=== PATIENT | male | born 1930 | race Asian ===

== ENCOUNTER 2018-01-04 12:47 | Emergency (ER) | payer OTHER, BC ==
[~2018-01-04] VITALS: Ht 157.5 cm; Wt 52.2 kg
[~2018-01-04 12:47] MED LIST: ADV100/50 IH; AMB5 PO; ANT25 PO; ASPIR 8181 MG PO; ASPIR-LOW81 M1 PO; BENAZEPRIL HCL PO; COL100 PO; CRESTOR PO; DIT5 PO; DOCUSATE SODIU100 M1 PO; DORZOLAMIDE HYD10 ML OP; EFFIENT10 M1 PO; FER300 PO; FLO4 PO; GLU500 PO; HYD25 PO; LOT10 PO; MEGESTROL; MIRALAX17 GM/Dose PO; NIT0.4 SL; NOR5 PO; PAX20 PO; PLA75 PO; VITC PO; XARELTO10 M1 PO; ZOF4 PO
[2018-01-04 12:50] VITALS: Ht 157.5 cm; Wt 52.2 kg
[2018-01-04 16:15] VITALS: BP 191/76
== END 2018-01-04 16:15 | disposition home or self-care (01) ==
LOC: ED 12:47
DX: S09.90XA Unspecified injury of head, initial encounter (principal); I10 Essential (primary) hypertension; E11.9 Type 2 diabetes mellitus without complications; J45.909 Unspecified asthma, uncomplicated; Z88.8 Allergy status to other drugs, medicaments and biological substances; Z88.2 Allergy status to sulfonamides; W31.89XA Contact with other specified machinery, initial encounter; Y93.89 Activity, other specified; Y92.89 Other specified places as the place of occurrence of the external cause; Y99.8 Other external cause status

== ENCOUNTER 2018-01-16 12:41 | Inpatient (IN) | payer OTHER, BC ==
[~2018-01-16] VITALS: Ht 157.5 cm; Wt 51.0 kg
[2018-01-16 13:38] LABS: BASOPHIL % 0.5 % (0-2); PLATELET COUNT 178 x10^3mcL (130-400); RED CELL DISTRIBUTION WIDTH 14.4 % (11.5-14.5)
[2018-01-16 13:47] LABS: CALCIUM 8.7 mg/dL (8.5-10.1); CARBON DIOXIDE 24.1 mmol/L (21-32); CHLORIDE SERUM 105 mmol/L (98-107); GLUCOSE SERUM 94 mg/dL (74-106); POTASSIUM SERUM 4.2 mmol/L (3.5-5.1); SODIUM SERUM 137 mmol/L (136-145)
[2018-01-16 13:52] LABS: ALBUMIN 3.4 g/dL (3.4-5.0); ALKALINE PHOSPHATASE 43 U/L (46-116); ALT/SGPT 16 U/L (16-63); AST/SGOT 19 U/L (15-37); BILIRUBIN TOTAL 0.9 mg/dL (0.20-1.00); TOTAL PROTEIN, SERUM 7.3 g/dL (6.4-8.2)
[2018-01-16] MEDS ORDERED: XARELTO10 M1 (14:28)
[2018-01-16] MEDS ORDERED: AMBIEN5 MG PO (14:28)
[2018-01-16] MEDS ORDERED: FLAREX5 ML OP (14:28)
[2018-01-16] MEDS ORDERED: VITAMIN B121000 MCG (14:29)
[2018-01-16] MEDS ORDERED: ISOSORBIDE MONO30 MG PO (14:29)
[2018-01-16] MEDS ORDERED: COZAAR25 M1 PO (14:29)
[2018-01-16] MEDS ORDERED: RANITIDINE HCL150 M1 PO (14:30)
[2018-01-16 15:49] VITALS: BP 227/89
[2018-01-16 16:19] LABS: MAGNESIUM 2.1 mg/dL (1.8-2.4); PHOSPHOROUS 3.5 mg/dL (2.5-4.9)
[2018-01-16 16:26] LABS: FREE T4 1.14 ng/dL (0.76-1.46); FREE THYROXINE INDEX 2.4 ug/dL (1.4-4.5); T4(THYROXINE) 6.7 ug/dL (4.7-13.3)
[2018-01-16 16:27] LABS: T3 TOTAL 0.82 ng/mL
[2018-01-16 16:48] VITALS: BP 191/70
[2018-01-16 18:43] VITALS: BP 182/71
[2018-01-16 22:00] VITALS: BP 140/80
[2018-01-16 22:44] LABS: UA SPECIFIC GRAVITY <=1.005 (1.005-1.035); microscopic required? YES; urine erythrocyte 2+ (NEGATIVE)
[2018-01-16 22:53] LABS: AMPHETAMINE QUAL UR NONE DETECTED (NEG <=1000)
[2018-01-17 01:13] VITALS: Ht 157.5 cm; Wt 51.0 kg
[2018-01-17 06:45] VITALS: BP 163/61
[2018-01-17 08:32] LABS: BASOPHIL % 0.5 % (0-2); PLATELET COUNT 180 x10^3mcL (130-400)
[2018-01-17 08:34] LABS: RED CELL DISTRIBUTION WIDTH 14.7 % (11.5-14.5)
[2018-01-17 09:19] LABS: CALCIUM 8.7 mg/dL (8.5-10.1); CARBON DIOXIDE 27.1 mmol/L (21-32); CHLORIDE SERUM 105 mmol/L (98-107); CREATININE SERUM 1.2 mg/dL (0.7-1.3); GLUCOSE SERUM 98 mg/dL (74-106); POTASSIUM SERUM 3.5 mmol/L (3.5-5.1); SODIUM SERUM 142 mmol/L (136-145)
[2018-01-17 20:00] VITALS: BP 192/69
[2018-01-17 21:50] VITALS: BP 174/83
[2018-01-17 22:23] VITALS: BP 163/78
[2018-01-18 06:26] VITALS: BP 169/76
[2018-01-18 08:20] LABS: CALCIUM 8.9 mg/dL (8.5-10.1); CARBON DIOXIDE 23.6 mmol/L (21-32); CHLORIDE SERUM 106 mmol/L (98-107); GLUCOSE SERUM 104 mg/dL (74-106); MAGNESIUM 2.2 mg/dL (1.8-2.4); PHOSPHOROUS 3.5 mg/dL (2.5-4.9); POTASSIUM SERUM 3.4 mmol/L (3.5-5.1); SODIUM SERUM 141 mmol/L (136-145)
[2018-01-18 09:06] VITALS: BP 176/68
[2018-01-18 09:27] LABS: BASOPHIL % 0.7 % (0-2); PLATELET COUNT 181 x10^3mcL (130-400)
[2018-01-18 09:29] LABS: RED CELL DISTRIBUTION WIDTH 14.7 % (11.5-14.5)
[2018-01-18 13:49] VITALS: BP 160/68
[2018-01-18 17:06] VITALS: BP 179/78
[2018-01-18 21:30] VITALS: BP 174/68
[2018-01-19 05:30] VITALS: BP 187/77
[2018-01-19 06:17] LABS: BASOPHIL % 0.3 % (0-2); PLATELET COUNT 169 x10^3mcL (130-400)
[2018-01-19 06:25] VITALS: BP 162/83
[2018-01-19 06:41] LABS: CALCIUM 8.5 mg/dL (8.5-10.1); CARBON DIOXIDE 23.8 mmol/L (21-32); CHLORIDE SERUM 105 mmol/L (98-107); CREATININE SERUM 1.1 mg/dL (0.7-1.3); GLUCOSE SERUM 107 mg/dL (74-106); POTASSIUM SERUM 3.4 mmol/L (3.5-5.1); SODIUM SERUM 140 mmol/L (136-145)
[2018-01-19 06:58] LABS: RED CELL DISTRIBUTION WIDTH 14.7 % (11.5-14.5)
[2018-01-19] MEDS ORDERED: ALBUTEROL SULFAT3 M3 IH (13:44)
[2018-01-19] MEDS ORDERED: LEVOFLOXACIN500 M1 PO (13:45)
[2018-01-19] MEDS ORDERED: LAC PO (13:46)
[2018-01-19] MEDS ORDERED: LOSARTAN POTASS1 TA6 PO (13:58)
[2018-01-19] MEDS ORDERED: NORVASC2.5 MG PO (13:58)
[2018-01-19 14:01] VITALS: BP 145/67
[2018-01-19 14:08] VITALS: BP 145/67
[2018-01-19] MEDS ORDERED: IPRATROPIUM BROM3 M2 HHN (14:30)
== END 2018-01-19 15:55 | disposition home or self-care (01) | DRG 291 ==
LOC: ED 12:41 → DU 14:21
PROVIDERS: Emergency Medicine; Family Medicine
DX: I50.43 Acute on chronic combined systolic (congestive) and diastolic (congestive) heart failure (principal); N17.0 Acute kidney failure with tubular necrosis; J44.1 Chronic obstructive pulmonary disease with (acute) exacerbation; I16.0 Hypertensive urgency; I10 Essential (primary) hypertension; I48.2 Chronic atrial fibrillation; I20.9 Angina pectoris, unspecified; G47.30 Sleep apnea, unspecified; H91.90 Unspecified hearing loss, unspecified ear; N40.0 Benign prostatic hyperplasia without lower urinary tract symptoms; E78.5 Hyperlipidemia, unspecified; I25.2 Old myocardial infarction; Z68.22 Body mass index [BMI] 22.0-22.9, adult; Z86.73 Personal history of transient ischemic attack (TIA), and cerebral infarction without residual deficits; Z79.01 Long term (current) use of anticoagulants
CPT/HCPCS: 83880; 84439; 94150; 97110-GP; 97116-GP; 97530-GP; J0360; J1940; J1956; J3490; J7030; J7620; J8597; Q0092; Q0163

== ENCOUNTER 2018-04-22 09:35 | Emergency (ER) | payer OTHER, BC ==
[~2018-04-22] VITALS: Ht 157.5 cm; Wt 53.5 kg
[~2018-04-22 09:35] MED LIST changes: +ALBUTEROL SULFAT3 M3 IH; +AMBIEN5 MG PO; +COZAAR25 M1 PO; +FLAREX5 ML OP; +IPRATROPIUM BROM3 M2 HHN; +ISOSORBIDE MONO30 MG PO; +LAC PO; +LEVOFLOXACIN500 M1 PO; +LOSARTAN POTASS1 TA6 PO; +NORVASC2.5 MG PO; +RANITIDINE HCL150 M1 PO; +VITAMIN B121000 MCG; +XARELTO10 M1
[2018-04-22 09:37] VITALS: Ht 157.5 cm; Wt 53.5 kg
[2018-04-22 10:21] LABS: BASOPHIL % 0.5 % (0-2); PLATELET COUNT 152 x10^3mcL (130-400)
[2018-04-22 10:23] LABS: RED CELL DISTRIBUTION WIDTH 15.4 % (11.5-14.5)
[2018-04-22 10:38] LABS: CALCIUM 8.5 mg/dL (8.5-10.1); CARBON DIOXIDE 24.9 mmol/L (21-32); CHLORIDE SERUM 108 mmol/L (98-107); CREATININE SERUM 1.1 mg/dL (0.7-1.3); GLUCOSE SERUM 119 mg/dL (74-106); POTASSIUM SERUM 3.8 mmol/L (3.5-5.1); SODIUM SERUM 140 mmol/L (136-145)
[2018-04-22 12:10] VITALS: BP 146/57
== END 2018-04-22 12:16 | disposition home or self-care (01) ==
LOC: ED 09:35
PROVIDERS: Emergency Medicine
DX: S09.90XA Unspecified injury of head, initial encounter (principal); J45.909 Unspecified asthma, uncomplicated; I10 Essential (primary) hypertension; E11.9 Type 2 diabetes mellitus without complications; Z88.8 Allergy status to other drugs, medicaments and biological substances; W18.30XA Fall on same level, unspecified, initial encounter; Y93.89 Activity, other specified; Y92.89 Other specified places as the place of occurrence of the external cause; Y99.8 Other external cause status
CPT/HCPCS: 83880; Q0092

== ENCOUNTER 2018-08-28 12:31 | Emergency (ER) | payer OTHER, BC ==
[~2018-08-28] VITALS: Ht 160 cm; Wt 54.0 kg
[2018-08-28 12:37] VITALS: Ht 160 cm; Wt 54.0 kg
[2018-08-28 13:20] LABS: BASOPHIL % 0.4 % (0-2); PLATELET COUNT 183 x10^3mcL (130-400); RED CELL DISTRIBUTION WIDTH 15.1 % (11.5-14.5)
[2018-08-28 13:41] LABS: CALCIUM 8.8 mg/dL (8.5-10.1); CARBON DIOXIDE 27.1 mmol/L (21-32); CHLORIDE SERUM 105 mmol/L (98-107); CREATININE SERUM 1.3 mg/dL (0.7-1.3); GLUCOSE SERUM 95 mg/dL (74-106); POTASSIUM SERUM 3.8 mmol/L (3.5-5.1); SODIUM SERUM 139 mmol/L (136-145)
[2018-08-28 14:28] VITALS: BP 160/71
== END 2018-08-28 14:45 | disposition home or self-care (01) ==
LOC: ED 12:31
PROVIDERS: Emergency Medicine
DX: S09.8XXA Other specified injuries of head, initial encounter (principal); I25.2 Old myocardial infarction; Z88.8 Allergy status to other drugs, medicaments and biological substances; Z86.73 Personal history of transient ischemic attack (TIA), and cerebral infarction without residual deficits; W18.39XA Other fall on same level, initial encounter; Y93.89 Activity, other specified; Y92.89 Other specified places as the place of occurrence of the external cause; Y99.8 Other external cause status; J45.909 Unspecified asthma, uncomplicated
CPT/HCPCS: 36415

== ENCOUNTER 2018-09-19 02:31 | Inpatient (IN) | payer OTHER, BC ==
[~2018-09-19] VITALS: Ht 160 cm; Wt 53.1 kg
[2018-09-19] VITALS (9 sets, daily range): BP systolic 171–203; BP diastolic 58–79; Ht 160 cm; Wt 53.1 kg
[2018-09-19 03:58] LABS: CALCIUM 8.9 mg/dL (8.5-10.1); CARBON DIOXIDE 28.6 mmol/L (21-32); CHLORIDE SERUM 105 mmol/L (98-107); CREATININE SERUM 1.1 mg/dL (0.7-1.3); GLUCOSE SERUM 99 mg/dL (74-106); POTASSIUM SERUM 4.3 mmol/L (3.5-5.1); SODIUM SERUM 140 mmol/L (136-145)
[2018-09-19 04:00] LABS: BASOPHIL % 0.6 % (0-2); PLATELET COUNT 158 x10^3mcL (130-400)
[2018-09-19 04:01] LABS: RED CELL DISTRIBUTION WIDTH 15.1 % (11.5-14.5)
[2018-09-19 04:02] LABS: ALBUMIN 3.9 g/dL (3.4-5.0); ALKALINE PHOSPHATASE 46 U/L (46-116); ALT/SGPT 17 U/L (16-63); AST/SGOT 16 U/L (15-37); BILIRUBIN TOTAL 1.2 mg/dL (0.20-1.00); TOTAL PROTEIN, SERUM 8.1 g/dL (6.4-8.2)
[2018-09-19 04:03] LABS: microscopic required? YES; urine erythrocyte 2+ (NEGATIVE)
[2018-09-19 05:48] LABS: MAGNESIUM 2.3 mg/dL (1.8-2.4); PHOSPHOROUS 3.3 mg/dL (2.5-4.9)
[2018-09-19 05:51] LABS: CHOLESTEROL/HDL RATIO 2.8
[2018-09-20 01:28] VITALS: BP 186/76
[2018-09-20 06:01] VITALS: BP 195/73
[2018-09-20 06:06] LABS: BASOPHIL % 0.6 % (0-2); PLATELET COUNT 161 x10^3mcL (130-400)
[2018-09-20 06:20] LABS: CALCIUM 8.9 mg/dL (8.5-10.1); CARBON DIOXIDE 23.5 mmol/L (21-32); CHLORIDE SERUM 108 mmol/L (98-107); CREATININE SERUM 1.1 mg/dL (0.7-1.3); GLUCOSE SERUM 93 mg/dL (74-106); PHOSPHOROUS 3.9 mg/dL (2.5-4.9); POTASSIUM SERUM 3.5 mmol/L (3.5-5.1); SODIUM SERUM 142 mmol/L (136-145)
[2018-09-20 06:52] LABS: RED CELL DISTRIBUTION WIDTH 15.1 % (11.5-14.5)
[2018-09-20 09:23] VITALS: BP 176/60
[2018-09-20 10:41] VITALS: BP 134/51; BP 176/60
[2018-09-20] MEDS ORDERED: NOR10 PO (11:20)
[2018-09-20] MEDS ORDERED: COZ50 PO (11:20)
[2018-09-20] MEDS ORDERED: HYD25 PO (11:21)
[2018-09-20 11:45] VITALS: BP 134/51
== END 2018-09-20 13:41 | disposition home or self-care (01) | DRG 884 ==
LOC: ED 02:31 → DU 04:41
PROVIDERS: Emergency Medicine; General Practice
DX: F03.90 Unspecified dementia, unspecified severity, without behavioral disturbance, psychotic disturbance, mood disturbance, and anxiety (principal); G93.41 Metabolic encephalopathy; N17.0 Acute kidney failure with tubular necrosis; I16.0 Hypertensive urgency; I48.2 Chronic atrial fibrillation; I20.8 Other forms of angina pectoris; I10 Essential (primary) hypertension; E78.5 Hyperlipidemia, unspecified; K21.9 Gastro-esophageal reflux disease without esophagitis; N40.0 Benign prostatic hyperplasia without lower urinary tract symptoms; J45.909 Unspecified asthma, uncomplicated; Z86.73 Personal history of transient ischemic attack (TIA), and cerebral infarction without residual deficits; Z79.01 Long term (current) use of anticoagulants; G47.30 Sleep apnea, unspecified
CPT/HCPCS: 83880; 97110-GP; 97116-GP; J0360; J3490; J7030; Q0092

== ENCOUNTER 2018-12-29 02:39 | Emergency (ER) | payer OTHER, BC ==
[~2018-12-29] VITALS: Ht 154.9 cm; Wt 54.4 kg
[~2018-12-29 02:39] MED LIST changes: +COZ50 PO; +NOR10 PO
[2018-12-29 02:49] VITALS: Ht 154.9 cm; Wt 54.4 kg
[2018-12-29 03:34] LABS: BASOPHIL % 0.1 % (0-2); PLATELET COUNT 189 x10^3mcL (130-400)
[2018-12-29 03:43] LABS: RED CELL DISTRIBUTION WIDTH 14.8 % (11.5-14.5)
[2018-12-29 03:58] LABS: CALCIUM 9.1 mg/dL (8.5-10.1); CARBON DIOXIDE 25.6 mmol/L (21-32); CHLORIDE SERUM 100 mmol/L (98-107); CREATININE SERUM 1.1 mg/dL (0.7-1.3); GLUCOSE SERUM 116 mg/dL (74-106); POTASSIUM SERUM 4.4 mmol/L (3.5-5.1); SODIUM SERUM 136 mmol/L (136-145)
[2018-12-29 04:03] LABS: ALBUMIN 3.6 g/dL (3.4-5.0); ALKALINE PHOSPHATASE 56 U/L (46-116); ALT/SGPT 16 U/L (16-63); AST/SGOT 28 U/L (15-37); BILIRUBIN TOTAL 1.43 mg/dL (0.20-1.00)
[2018-12-29 04:12] LABS: TOTAL PROTEIN, SERUM 8.4 g/dL (6.4-8.2)
[2018-12-29 05:41] VITALS: BP 180/83
== END 2018-12-29 05:41 | disposition short-term general hospital (02) ==
LOC: ED 02:39
PROVIDERS: Emergency Medicine
DX: S06.309A Unspecified focal traumatic brain injury with loss of consciousness of unspecified duration, initial encounter (principal); I48.91 Unspecified atrial fibrillation; J45.909 Unspecified asthma, uncomplicated; I10 Essential (primary) hypertension; E11.9 Type 2 diabetes mellitus without complications; I25.2 Old myocardial infarction; Z86.73 Personal history of transient ischemic attack (TIA), and cerebral infarction without residual deficits; Z88.8 Allergy status to other drugs, medicaments and biological substances; W18.30XA Fall on same level, unspecified, initial encounter; Y93.89 Activity, other specified; Y92.89 Other specified places as the place of occurrence of the external cause; Y99.8 Other external cause status
CPT/HCPCS: 36415; Q0092

== ENCOUNTER 2019-04-09 15:11 | Emergency (ER) | payer OTHER, BC ==
[~2019-04-09] VITALS: Ht 157.5 cm; Wt 55.3 kg
[2019-04-09 15:15] VITALS: Ht 157.5 cm; Wt 55.3 kg
[2019-04-09 15:55] LABS: BASOPHIL % 0.5 % (0-2); PLATELET COUNT 240 x10^3mcL (130-400)
[2019-04-09 15:58] LABS: RED CELL DISTRIBUTION WIDTH 15.8 % (11.5-14.5)
[2019-04-09 16:10] LABS: CALCIUM 8.2 mg/dL (8.5-10.1); CARBON DIOXIDE 26.7 mmol/L (21-32); CHLORIDE SERUM 106 mmol/L (98-107); CREATININE SERUM 1.1 mg/dL (0.7-1.3); GLUCOSE SERUM 166 mg/dL (74-106); POTASSIUM SERUM 3.3 mmol/L (3.5-5.1); SODIUM SERUM 142 mmol/L (136-145)
[2019-04-09 16:12] LABS: ALKALINE PHOSPHATASE 44 U/L (46-116); ALT/SGPT 13 U/L (16-63); AST/SGOT 8 U/L (15-37); BILIRUBIN TOTAL 0.5 mg/dL (0.20-1.00); LIPASE 267 IU/L (73-393); TOTAL PROTEIN, SERUM 6.8 g/dL (6.4-8.2)
[2019-04-09 16:18] LABS: ALBUMIN 3.1 g/dL (3.4-5.0)
[2019-04-09 17:34] VITALS: BP 125/60
== END 2019-04-09 17:34 | disposition home or self-care (01) ==
LOC: ED 15:11
PROVIDERS: Emergency Medicine
DX: K94.23 Gastrostomy malfunction (principal); J45.909 Unspecified asthma, uncomplicated; I10 Essential (primary) hypertension; E11.9 Type 2 diabetes mellitus without complications; Z88.2 Allergy status to sulfonamides; Z88.8 Allergy status to other drugs, medicaments and biological substances; Z88.1 Allergy status to other antibiotic agents
CPT/HCPCS: J2270; J2405; J7030